=== PATIENT | male | born 1960 | race Caucasian/White ===

== ENCOUNTER 2017-05-21 03:07 | Inpatient (IN) | payer MEDICARE, OTHER ==
[~2017-05-21] VITALS: Ht 172.7 cm; Wt 103.5 kg
--- NOTE | ~2017-05-21 | CO ---
Unit #: [id number] #: [id number] Patient: RALF WANG [id number] [address] [address] [id number] MR#: [id number] NAME: RALF WANG ROOM: [facility] Age: 56 Sex: M Admission Date: 05/21/2017 : 1960 Attending Physician: Meseret Kelley M.D. Primary Care Physician: Clara Primary Care Physician Consultation Date: 05/23/2017 CONSULTATION REPORT REASON FOR CONSULT ICU management. HISTORY OF PRESENT ILLNESS This is a 56-year-old male with past medical history significant for hypertension, alcohol abuse, cirrhosis, esophageal varices and tobacco abuse who presented to the emergency room from home with difficulty breathing and chest pain. His symptoms were associated with diaphoresis, nausea, but there was no vomiting. During his admission his mental status declined, and the patient started going into alcohol withdrawal symptoms with agitation and restlessness. The patient is very confused at this point. The patient was transferred to the ICU, and he was placed on a Precedex drip after he was given multiple doses of Ativan up to 36 mg IV. Currently the patient is very sedated; however, he arouses to (1) and stimuli. PAST MEDICAL HISTORY 1. Hypertension. 2. Depression. 3. Anxiety. 4. Alcohol abuse. 5. Esophageal varices. 6. GERD. PAST SURGICAL HISTORY 1. Appendectomy. 2. Left cataract surgery. 3. Left ankle surgery. ALLERGIES No known drug allergies. FAMILY HISTORY Coronary artery disease. SOCIAL HISTORY The patient drinks alcohol but unsure how much. He is an active smoker. No history of street drug abuse. HOME MEDICATIONS 1. Inderal. Unit #: [id number] #: [id number] Patient: RALF WANG 2. Paroxetine. REVIEW OF SYSTEMS Unable to obtain from the patient due to his condition. PHYSICAL EXAMINATION GENERAL: The patient is sedated, on Precedex drip. VITAL SIGNS: Blood pressure 132/64, respiratory rate 16, O2 saturation 96% on 2 liters nasal cannula. HEENT: Atraumatic, normocephalic. PERRLA, EOMI. NECK: Supple. No JVD. No lymphadenopathy. CHEST: Fine rhonchi at the bases. HEART: S1, S2. No murmur, gallops or rubs. ABDOMEN: Soft, nontender. Bowel sounds positive. No hepatosplenomegaly. EXTREMITIES: No edema or cyanosis. SKIN: No rashes. APARTMENT ASSISTANT MANAGER: The patient is sedated, but he is moving all extremities. He mumbles some words in response to questions, but his conversation is hard to understand. LABS AND OTHER TESTS LABS: Creatinine is 0.8, chloride 102, albumin 3.4. White blood count 5.4, hemoglobin 12.8. IMAGING TESTS: Reviewed. ASSESSMENT 1. Alcohol withdrawal. 2. (2) . 3. Chest pain. 4. Hypertension. 5. Hyperglycemia. 6. Cirrhosis. 7. Esophageal varices. 8. Thrombocytopenia. PLAN 1. I will continue the patient on Precedex drip but will wean as tolerated. 2. Will add clonidine and Neurontin. 3. Will keep NPO for now. 4. Will watch off antibiotics. 5. IV hydration while NPO. 6. Bronchodilator and mucolytics. 7. Will add DVT prophylaxis but we will hold if platelet level less than 40. NOTE: I would like to thank Dr. Gerardo for allowing me to be part of this patient's care. Dictated by... Aarti Rivera M.D. EA/pamela TD: 05/23/2017 12:29 Unit #: [id number] #: [id number] Patient: RALF WANG JOB #: [id number] CONSULTATION REPORT Page 1 of 1 X AARTI MENDENHALL MD CONSULTATION REPORT
--- NOTE | ~2017-05-21 | MR113 ---
[facility] A Service of [facility] & [facility] RADIOLOGY TEXT RESULTS PATIENT: RALF WANG LOCATION: [facility] 315-01 : 56 UNIT #: [id number] AGE: [address]: Meseret Kelley MD SEX: M ORDER DR: [id number] [facility] [address] [facility]. [place], [place] [address] [id number] I MR#: [id number] Acc #: [id number] NAME: RALF WANG. : 1960 SEX: M STUDY DATE/TIME: 05/21/2017 18:04 UNIT: [address] ROOM: [facility] STUDY DESCRIPTION: MR Lumbar Wo Contrast Attending Physician: Meseret Kelley M.D. Ordering Physician: Gopal Vick M.D. Primary Care Physician: No Primary Care Physician MRI CENTER REPORT This report is preliminary unless electronic signature is present. EXAM MRI of the lumbar spine without contrast dated 05/21/2017. COMPARISON MRI lumbar spine without contrast dated 04/16/13 HISTORY Low back pain with history of compression fracture. Alcoholic cirrhosis. FINDINGS Single sagittal T2 fat sat sequence alone was obtained. Patient could not complete the study due to claustrophobia and he refused further continue. There is edema noted in the L1 and L2 vertebral bodies on either side of L1-2 disc. There appears to be mild superior endplate compression deformity of L2 and T12, new when compared to the prior study. Given the lack of other sequences, it is difficult to further characterize it. The edema is noted horizontal extending from the anterior to posterior aspect and a possible fracture cannot be completely excluded. No significant retropulsion of fragments into the canal or significant hematoma is seen. There is 10% - 20% maximal loss of vertebral body height at T12 and L2. Mild degenerative disc disease is noted from L3-4 to L5-S1 with likely disc bulges. There is a right subarticular to foraminal protrusion with annular fissure at L4-5 and L3-4, with mild inferior right neural foraminal narrowing. No significant canal stenosis is seen. IMPRESSION 1. The study is incomplete and hence very limited in evaluation. 2. Only sagittal T2 fat sat sequence is given, as the patient would not complete the study due to severe claustrophobia. 3. Edema is noted at T12, L1 and L2 vertebral bodies. 4. Superior endplate compression deformity is noted at T12 and L1 STS. [facility] A Service of [facility] & [facility] RADIOLOGY TEXT RESULTS PATIENT: RALF WANG LOCATION: [facility] 315-01 : 56 UNIT #: [id number] AGE: [address]: Meseret Kelley MD SEX: M ORDER DR: levels with 10% - 20% loss of vertebral body height. Edema extends from anterior to posterior aspect along the superior endplate and upper body. It could be related to of fracture but a well-defined fracture line is not clearly seen in this sequence, and the other sequences were not obtained to further help characterize it. These findings are new when compared to the prior study from 2012. No obvious superior endplate compression deformity could be clearly seen in the plain films of the lumbar spine from 09/13/[address] lumbar spine extending from T11 inferiorly can be obtained to evaluate these vertebrae for fractures. 5. degenerative disc disease is noted from L3-4 to L5-S1. 5. Right L4-5 and L3-4 foraminal small protrusion with annular fissure. No canal stenosis. Mild right L3-4 and L4-5 neural foraminal narrowing are probably present. Dictated by... Lobo Brush M.D. THIS IS AN ELECTRONICALLY VERIFIED REPORT Lobo Brush M.D. at 05/22/2017 1:12 PM CPR/aicha TD: 05/21/2017 21:38 JOB #: [id number] MRI CENTER REPORT Page 1 of 1 COPY
--- NOTE | ~2017-05-21 | A ---
[facility] Nutrition Therapy DATE: 05/23/17 Patient: RALF WANG Physician: BARTOLOME Address: [address] [place] [address] Room/Bed: [address], Zip: [place] [address] Admit Date: 05/21/17 Date of : 56 Height: 5 8 Weight: 224 102 NUTRITIONAL ASSESSMENT: REASON: NPO status in ICU 56 yo male admitted for back pain, EtOH withdrawal PMH: HTN, EtOH abuse, cirrhosis, bleeding varices, anxiety, depression, GERD, peripheral neuropathy, hernia repair Anthropometrics: Ht: 5'8" Wt: 103 kg BMI: 34.5 Labs: Gluc 155 Alb 3.4 Meds: Therapeutic formula, protonix, loperamide HCl, phenergan, thiamine, MVI, folvite, D5% I/O & Bowel function: 1180/654, last BM 05/21 Skin Integrity: Abrasion LLE/ right knee/ BUE Redness right knee Splint / CSI RLE Scar/ dryness/ discoloration left ankle and foot/ abdomen Edema: none noted Diet: NPO Assessment: Chart reviewed, events noted. 56 yo male admitted for EtOH withdrawal, CIWA protocol initiated. Per RN report, pt is currently NPO d/t AMS, and there are orders for heart healthy diet once deemed appropriate per HOSPICE VOLUNTEER COORDINATOR evaluation. Pt has apparently pulled out several IVs, and would not be an ideal candidate for a DHT due to this. Pt is not appropriate for nutrition interview or diet education at this time. Please see recommendations below. Dx: Inadequate protein-energy intake RT clinical condition, EtOH withdrawal AEB NPO status, RN report. Intervention: 1. Advance diet per HOSPICE VOLUNTEER COORDINATOR 2. MVI + minerals Monitoring, Evaluation and Goals: 1. Oral intake; advance diet per HOSPICE VOLUNTEER COORDINATOR once feasible [facility] Nutrition Therapy DATE: 05/23/17 Patient: RALF WANG Physician: BARTOLOME Address: [address] [place] [address] Room/Bed: [address], Zip: [place] [address] Admit Date: 05/21/17 Date of : 56 Height: 5 8 Weight: 224 102 2. Improve labs; glucose 3. Weight; promote gradual weight loss towards IBW once appropriate Recommendations: 1. Once medically feasible, advance diet per HOSPICE VOLUNTEER COORDINATOR recommendations + heart healthy restriction. 2. Once advanced to PO diet, pt would benefit from Ensure BID and snacks in between meals due to his PMH (cirrhosis). 3. If unable to advance to PO diet, consider alternative form of nutrition. RD will follow up to make appropriate recommendations. Pt is at moderate nutritional risk. RD will follow hospital course per protocol. Respectfully, RIAZ LAWLER RD, LD [employer] [facility] [employer] cc: client file
--- NOTE | ~2017-05-21 | DS ---
Unit #: [id number] #: [id number] Patient: RALF WANG [id number] [address] [address] [id number] I MR#: [id number] NAME: RALF WANG. ROOM: 574 Age: 56 Sex: M Admission Date: 05/21/2017 : 1960 Discharge Date: 05/26/2017 Attending Physician: Bryon Gerardo M.D. Primary Care Physician: Primary Care Physician No DISCHARGE SUMMARY PRIMARY DIAGNOSIS Chest pain, noncardiac. 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 HOSPITAL COURSE The patient was admitted to the hospital for chest pain rule out. He underwent cardiac stress testing, which was negative, but began to have severe delirium tremens prior to the result coming back. He was transferred to the ICU and put on a high dose delirium tremens protocol with the addition of scheduled Librium and ultimately ended up on a Precedex drip. This was slowly weaned off over a number of days with the assistance of Dr. Rivera with Pulmonology. Dr. Kelley with Cardiology also saw the patient for the first few days of hospitalization, and once we cleared him from a cardiac standpoint, transferred the care to me. Ultimately, the patient reported to me that he was going to stay off alcohol, although he did not seem fully certain of this. I am going to try to give him a few days taper of Librium, but I strictly instructed him to stop the Librium if he goes back to using the alcohol, which seems likely considering he has been on alcohol daily for the last 10 years or more. I did add Flomax to his outpatient regimen for BPH. DISCHARGE DISPOSITION To home. DISCHARGE STATUS Stable. DISCHARGE ACTIVITY Ad thomas. DISCHARGE DIET Unrestricted. DISCHARGE FOLLOWUP Followup is with his PCP in 1 to 4 weeks. Unit #: [id number] #: [id number] Patient: RALF WANG DISCHARGE MEDICATIONS Flomax 0.4 mg p.o. q.h.s., paroxetine 40 mg p.o. once daily, Inderal 40 mg p.o. t.i.d., Librium 10 mg p.o. b.i.d. for 2 days and then stop, and aspirin 81 mg p.o. daily. Dictated by... Bryon Gerardo M.D. DONALDO/ras TD: 05/28/2017 12:25 JOB #: [id number] DISCHARGE SUMMARY Page 1 of 1 X Bryon Gerardo MD X DISCHARGE SUMMARY
--- NOTE | ~2017-05-21 | HP ---
Unit #: [id number] #: [id number] Patient: RALF WANG [id number] [address] [address] [id number] I MR#: [id number] NAME: RALF WANG. ROOM: 38089 Age: 56 Sex: M Admission Date: 05/21/2017 : 1960 Attending Physician: Meseret Kelley M.D. Primary Care Physician: No Primary Care Physician HISTORY AND PHYSICAL HISTORY OF PRESENT ILLNESS This is a 56-year-old male with a past medical history of hypertension, prior alcohol abuse, cirrhosis, bleeding varices, tobacco abuse, lipid status is unknown, anxiety, depression, gastroesophageal reflux, alcoholic peripheral neuropathy. The patient presents to the hospital from home. States he was awoken from sleep due to difficulty breathing. Noticed palpitations at that time as well as some complaint of mid sternal chest pain. Describes the pain as squeezing. States it would not relieve. Therefore, came to the emergency room for evaluation. Pain was associated with diaphoresis, nausea but denies any vomiting or syncopal episodes. The patient is also complaining of severe lower lumbar pain and states he is unable to lay flat secondary to this reason. Initial EKG on arrival to the emergency room shows normal sinus rhythm, rate of 100 beats per minute, no acute ischemic change, nonspecific ST abnormalities noted, QTc interval of 492 ms. Initial troponin has been negative. The patient has received aspirin as well as sublingual nitroglycerin with minimal relief. Upon examination of the patient in room 9 in the emergency room, he is still complaining of chest pain. Describes as squeezing with radiation into the right shoulder. The patient is also very diaphoretic but does not appear to be in any acute distress. His breathing is unlabored. He has been treated with two additional sublingual nitroglycerin with minimal relief of his pain. He continues to say his back pain is worse than the chest pain. STAT EKG has been ordered. PAST MEDICAL HISTORY 1. Hypertension. 2. Depression and anxiety. 3. Previous history of alcohol abuse. 4. History of bleeding varices. 5. Gastroesophageal reflux. 6. Lipid status is unknown. PAST SURGICAL HISTORY 1. Periumbilical and bilateral inguinal hernia repair. 2. Appendectomy. 3. Left cataract surgery. 4. Left ankle surgery. ALLERGIES No known drug allergies. FAMILY HISTORY Unit #: [id number] #: [id number] Patient: RALF WANG Patient does report a family history significant for coronary artery disease in both his brother and his father. SOCIAL HISTORY The patient does report a prior history of alcohol abuse, but he states he no longer drinks heavily. He only drinks on occasion. He is an active smoker. Denies any illicit drug use. HOME MEDICATIONS 1. Inderal 40 mg p.o. t.i.d. 2. Paroxetine 40 mg p.o. daily. REVIEW OF SYSTEMS Positive for low-back pain, fatigue, shortness of breath, chest pain, intermittent lower extremity swelling, intermittent palpitations. All other systems were reviewed and are negative. PHYSICAL EXAMINATION GENERAL APPEARANCE: This is a pleasant 56-year-old male who is in ER room 9. He appears slightly anxious but is in no acute distress. VITAL SIGNS: Temperature is 98, respiratory rate 18, pulse 86, blood pressure 133/80. HEENT: Head is atraumatic, normocephalic. Pupils are equal and round. Pharynx is benign. NECK: Supple. Trachea is midline. No thyromegaly or lymphadenopathy. Carotid upstrokes are normal. HEART: S1, S2. No murmur, gallop, or rub. CHEST: Clear, slightly diminished in the bases. No rales, rhonchi, or wheezes are noted. ABDOMEN: Bowel sounds are present. Obese abdomen. Nontender, nondistended. EXTREMITIES: Pulses are palpable but weak. No clubbing, cyanosis, or edema. NEUROLOGIC: He is awake, alert, and oriented. Moves all extremities equally. He follows commands with ease. DIAGNOSTIC STUDIES LABORATORY: Glucose 182, BUN 11, creatinine 0.6, sodium 129, potassium 4, chloride 95, CO2 of 20. Total bilirubin 2.6, bilirubin direct 0.4, bilirubin indirect 2.2, AST 60, ALT 34. Initial troponin is less than 0.05. PT 12, INR 1.1, PTT 25.7. Hemoglobin 15.5, hematocrit 46.1, WBC 6.5, platelet count 77,000. IMAGING: Chest x-ray shows no active disease. CARDIOVASCULAR: EKG shows normal sinus rhythm, rate of 100 beats per minute, nonspecific ST abnormality, QTc interval 492 ms. No acute ischemic change. Repeat EKG shows normal sinus rhythm 70 beats per minute, no acute ischemic change. IMPRESSION 1. Atypical chest pain, rule out acute coronary syndrome. 2. Low-back pain, questionable etiology. 3. Anxiety, depression. 4. Hypertension. 5. Tobacco abuse. Unit #: [id number] #: [id number] Patient: RALF WANG 6. Hyponatremia. 7. Elevated bilirubin. PLAN 1. Will check repeat EKG as the patient is currently complaining of active chest pain. Initial cardiac enzymes were normal. Will get a STAT troponin. If negative, the patient will have ischemic workup today with Lexiscan Cardiolite. 2. Will also check lab work which includes: BMP, fasting lipid, TSH, and a D-dimer. 3. The patient will also be started on aspirin p.o. daily. 4. Will check 2D echocardiogram to check for any structural abnormalities. 5. He does have other medical issues that need addressing which include complaints of severe low-back pain as well as elevated liver function tests. Will ask HIPS to see patient to evaluate for medical management. 6. The patient was advised on the importance of smoking cessation. 7. I was going to start the patient on Lovenox; however, his platelets are 77,000 and in light of two normal troponins and in light of normal EKG, will hold off on Lovenox at this time. This case has been discussed with Dr. Gaines. Further recommendations pending his assessment. Dictated by Usha Romeo A.P.R.N. for Hossein Gaines M.D. [facility]/israel TD: 05/21/2017 09:36 JOB #: [id number] HISTORY AND PHYSICAL Page 1 of 1 X Usha Romeo APRN HISTORY AND PHYSICAL
--- NOTE | ~2017-05-21 | ST ---
Unit #: [id number] #: [id number] Patient: RALF WANG [id number] [address] [address] [id number] I MR#: [id number] NAME: RALF WANG. : 1960 SEX: M STUDY DATE/TIME: 05/22/2017 UNIT: C3A PCU ROOM: [facility] STUDY DESCRIPTION: Attending Physician: Meseret Kelley M.D. CARDIOLOGY REPORT FINDINGS Baseline EKG: Normal sinus rhythm. Nonspecific ST-T changes. Resting heart rate 58 per minute and blood pressure 165/97. PROCEDURE This 56-year-old patient received 0.4 mg of Lexiscan intravenously during the test with no ischemic changes noted and no arrhythmias noted. Blood pressure was stable. INTERPRETATION 1. Nondiagnostic EKG during Lexiscan. 2. No arrhythmias noted. 3. Stable blood pressure during the test. 4. Correlate with the Cardiolite study. 1. Dictated by... Rylye Pyle/maggie TD: 05/22/2017 14:09 JOB #: [id number] CARDIOLOGY REPORT Page 1 of 1 X Meseret Kelley MD CARDIOLOGY REPORT
--- NOTE | ~2017-05-21 | CR72 ---
[facility] A Service of [facility] & [facility] RADIOLOGY TEXT RESULTS PATIENT: RALF WANG LOCATION: [place] [address]-20 : [birth year] UNIT #: [id number] AGE: [address]: Meseret Kelley MD SEX: M ORDER DR: [id number] [place] [address] [facility]. [place], [place] [address] [id number] I MR#: [id number] Acc #: [id number] NAME: RALF WANG : 1960 SEX: M STUDY DATE/TIME: 05/23/2017 12:01 UNIT: [facility] ROOM: [facility] STUDY DESCRIPTION: CR Chest Single View Portable Attending Physician: Meseret Kelley M.D. Ordering Physician: Meseret Kelley M.D. Primary Care Physician: Primary Care Physician No MEDICAL IMAGING REPORT This report is preliminary unless electronic signature is present EXAM Chest portable, 05/23/2017 12:01 hours HISTORY Cough and congestion and abdominal pain with shortness of air, vomiting and sweats for 30 minutes. Dobbhoff tube placement. COMPARISON 05/21/2017 FINDINGS Portable upright chest demonstrates mild cardiomegaly and a tortuous aorta. Lung volumes are lower with perihilar and basilar vascular crowding but no definite edema, pneumonia or effusion. There is a Dobbhoff type tube present with tip terminating in the mid esophagus at approximately the level of the celine. Suggest advancing additional 20.0 cm. IMPRESSION 1. Low lung volume film with no acute cardiopulmonary findings. 2. Dobbhoff tube tip projects in the mid esophagus at the level of the celine. Suggest advancing additional 20.0 cm. Dictated by... Eunice Astorga M.D. THIS IS AN ELECTRONICALLY VERIFIED REPORT Eunice Astorga M.D. at 05/23/2017 5:38 PM Charbel TD: 05/23/2017 15:35 JOB #: [id number] [facility] A Service of [facility] & [facility] RADIOLOGY TEXT RESULTS PATIENT: RALF WANG [address] : [birth year] UNIT #: [id number] AGE: [address]: Meseret Kelley MD SEX: M ORDER DR: MEDICAL IMAGING REPORT Page 1 of 1 COPY
--- NOTE | ~2017-05-21 | EKG ---
PATIENT: RALF WANG UNIT #: [id number] Ventricular Rate: 100 BPM Atrial Rate: 100 BPM P-R Interval: 116 ms QRS Duration: 86 ms Q-T Interval: 382 ms QTC Calculation(Bezet): 492 ms P [place]: -5 degrees Calculated R [place]: 46 degrees Calculated T [place]: -2 degrees Diagnosis Line: Normal sinus rhythm Diagnosis Line: Nonspecific ST abnormality Diagnosis Line: Prolonged QT Diagnosis Line: Abnormal ECG Diagnosis Line: No previous ECGs available Diagnosis Line: Confirmed by BERNABE TOMLIN MD ([id number]) on Diagnosis Line: 05/22/2017 10:34:25 AM INTERPRETING MD: SADA DELCID
--- NOTE | ~2017-05-21 | EKG ---
PATIENT: RALF WANG UNIT #: [id number] Ventricular Rate: 70 BPM Atrial Rate: 70 BPM P-R Interval: 126 ms QRS Duration: 72 ms Q-T Interval: 432 ms QTC Calculation(Bezet): 466 ms P [place]: -28 degrees Calculated R [place]: 3 degrees Calculated T [place]: 13 degrees Diagnosis Line: Normal sinus rhythm Diagnosis Line: Normal ECG Diagnosis Line: When compared with ECG of 21-MAY-2017 03:29, Diagnosis Line: (unconfirmed) Diagnosis Line: No significant change was found Diagnosis Line: Confirmed by BERNABE TOMLIN MD ([id number]) on Diagnosis Line: 05/22/2017 10:36:13 AM INTERPRETING MD: SADA DELCID
--- NOTE | ~2017-05-21 | CR6 ---
[facility] A Service of [facility] & [facility] RADIOLOGY TEXT RESULTS PATIENT: RALF WANG LOCATION: [place] [address] : [birth year] UNIT #: [id number] AGE: [address]: Meseret Kelley MD SEX: M ORDER DR: [id number] [facility] [address] [facility]. [place], [place] [address] [id number] I MR#: [id number] Acc #: [id number] NAME: RALF WANG : 1960 SEX: M STUDY DATE/TIME: 05/23/2017 1208 UNIT: [facility] ROOM: [facility] STUDY DESCRIPTION: CR Abdomen Portable Sng View Attending Physician: Meseret Kelley M.D. Ordering Physician: Meseret Kelley M.D. Primary Care Physician: No Primary Care Physician MEDICAL IMAGING REPORT This report is preliminary unless electronic signature is present EXAM Abdomen one-view 05/23/2017 1208 hours CLINICAL HISTORY Dobbhoff tube placement. COMPARISON Chest film 05/23/2017 1201 hours FINDINGS Supine view of the abdomen demonstrates advancement of the Dobbhoff tube with tip now directed either anteriorly or posteriorly in the fundus of the stomach. IMPRESSION Dobbhoff tube tip is in the fundus of the stomach with tip directed either anteriorly or posteriorly and leftward. Dictated by... Eunice Astorga M.D. THIS IS AN ELECTRONICALLY VERIFIED REPORT Eunice Astorga M.D. at 05/23/2017 5:38 PM Kelechi TD: 05/23/2017 15:37 JOB #: [id number] MEDICAL IMAGING REPORT Page 1 of 1 COPY
--- NOTE | ~2017-05-21 | CR72 ---
[facility]. [facility] A Service of [facility] & [facility] RADIOLOGY TEXT RESULTS PATIENT: RALF WANG LOCATION: [facility] [id number] : 56 UNIT #: [id number] AGE: [address]: Meseret Kelley MD SEX: M ORDER DR: [id number] [facility] [address] [place], [place] [address] [id number] MR#: [id number] Acc #: [id number] NAME: RALF WANG. : 1960 SEX: M STUDY DATE/TIME: 05/21/2017 3:41 UNIT: CEDOF ROOM: [facility] STUDY DESCRIPTION: CR Chest Single View Portable Attending Physician: Meseret Kelley M.D. Ordering Physician: Jameson Amaro M.D. Primary Care Physician: Primary Care Physician No MEDICAL IMAGING REPORT This report is preliminary unless electronic signature is present EXAM Portable chest 05/21/2017 INDICATION Shortness of air, chest pain since 1 a.m. COMPARISON 09/26/2015. FINDINGS A portable view of the chest was obtained. Heart size and vascularity are normal. The lungs are clear. The bones are normal. IMPRESSION No active disease. Dictated by... Will South M.D. THIS IS AN ELECTRONICALLY VERIFIED REPORT Will South M.D. at 05/21/2017 3:09 PM MARIAN/cirilo TD: 05/21/2017 05:58 JOB #: [id number] MEDICAL IMAGING REPORT Page 1 of 1 COPY
--- NOTE | ~2017-05-21 | TH ---
Unit #: [id number] #: [id number] Patient: RALF WANG [id number] [address] [address] [id number] I MR#: [id number] NAME: RALF WANG. : 1960 SEX: M STUDY DATE/TIME: UNIT: C3A PCU ROOM: [address] [place] [address] DESCRIPTION: Attending Physician: Meseret Kelley M.D. CARDIOLOGY REPORT DESCRIPTION This 56-year-old patient received 0.4 mg of Lexiscan intravenously followed by 34.1 mCi of technetium 99m Cardiolite, and images were obtained according to the standard SPECT protocol. For rest images, 11.54 mCi of Cardiolite was injected. Images were reviewed in both phases. FINDINGS Overall study quality is excellent. LV cavity size is normal in both images. There is no lung activity. RV is normal. Rotating raw data showed no significant artifact, soft tissue attenuation, or GI uptake. Review of the SPECT images showed normal homogeneous radiotracer concentration throughout the myocardium in both the stress and rest images. Gated images showed normal LV wall thickening and wall motion with an estimated LV ejection fraction of 63%. IMPRESSION 1. Myocardial perfusion imaging is normal. 2. No evidence of ischemia or infarct. 3. Normal left ventricle dimensions. 4. Normal systolic left ventricular function with an estimated left ventricular ejection fraction of 63%. 1. Dictated by... Ryley Pyle/maggie TD: 05/22/2017 14:16 JOB #: [id number] CARDIOLOGY REPORT Page 1 of 1 X Meseret Kelley MD CARDIOLOGY REPORT
[~2017-05-21 03:07] MED LIST: ACETAMINOPHEN PR; ALDACTONE PO; AMITRIPTYLINE H25 MG PO; AMITRIPTYLINE H50 MG PO; AMITRYPTYLINE PO; BACTROBAN22 GM TP; DESYREL150 M1 PO; FAMOTIDINE PO; FAMOTIDINE20 M1 PO; FLURAZEPAM HCL30 MG PO; FOLIC ACID PO; FOLIC ACID1 MG PO; GABAPENTIN400 MG PO; INDERAL20 MG PO; INDERAL40 MG PO; LASIX PO; LASIX20 MG PO; LYRICA PO; MAG-AL ULTIMATE20 ML PO; MULTI VITAMIN1 EACH PO; MULTI-DAY VITAM1 TAB PO; MULTI-VITAMIN1 EAC1; NAPROXEN500 M1 PO; NEURONTIN100 MG PO; NEURONTIN600 MG PO; NEURONTIN800 MG PO; NORCO 5/325 TAB1 TAB PO; OXYCODONE HCL5 M1 PO; PAXIL40 MG PO; PEPCID AC20 M2 PO; PROPRANOLOL HCL40 MG PO; PROPRANOLOL PO; REMERON15 MG PO; RESTORIL15 MG PO; SEROQUEL PO; SEROQUEL25 MG PO; SEROQUEL50 M1 PO; SPIRONOLACTONE100 MG PO; THIAMINE HCL100 MG PO; TRENTAL400 MG PO; VIT B-12 PO; VITAMIN B; VITAMIN B-121000 MCG PO; VITAMIN B-12250 MCG PO; ZINC30 M1 PO; ZINC50 M1 PO
[2017-05-21 03:51] LABS: BASOPHIL% 0.2 % (0-2.5); EOSINOPHIL% 0.2 % (0.0-7.0); HEMATOCRIT 46.1 % (38.0-50.0); HEMOGLOBIN 15.5 gm/dL (13.0-16.0); LYMPHOCYTE# 0.3 X10e3 (1.0-3.5); LYMPHOCYTE% 5.3 % (17.0-45.0); MEAN CELL VOLUME 98.2 FL (83-96); MEAN CORPUSCULAR HEMOGLOBIN 33.1 PG (28-34); MEAN CORPUSCULAR HGB CONC 33.7 g/dL (30-36); MEAN PLATELET VOLUME 7.3 FL (6.5-11.5); MONOCYTE# 0.3 X10e3 (0-1.0); MONOCYTE% 4.6 % (3.0-12.0); NEUTROPHIL# 5.8 X10e3 (1.5-7.1); NEUTROPHIL% 89.7 % (40-75); RED BLOOD COUNT 4.69 X10e (3.90-5.60); RED CELL DISTRIBUTION WIDTH 14.3 % (11.0-15.5); WHITE BLOOD COUNT 6.5 X10e3 (4.0-10.5)
[2017-05-21 03:53] LABS: POC - CKMB 1.9 ng/mL (0.0-7.9); POC - TROPONIN <0.05 ng/mL (<=0.05)
[2017-05-21 04:03] LABS: DIFF IND YES; PLATELET COUNT 77 X10e3 (140-420)
[2017-05-21 04:07] LABS: INR 1.1; PARTIAL THROMBOPLASTIN TIME 25.7 SECONDS (23.5-31.3)
[2017-05-21 04:17] LABS: PLATELET ESTIMATE DECREASED (NORMAL); RBC NORMAL YES
[2017-05-21 04:18] LABS: ALBUMIN SERUM 4.1 g/dL (3.5-5.0); BILIRUBIN, DIRECT 0.4 mg/dL (0.0-0.2); BILIRUBIN,INDIRECT 2.2 mg/dL (0.0-0.9); BILIRUBIN,TOTAL 2.6 mg/dL (0.2-2.0); BUN/CREATININE RATIO 18.33; CALCIUM SERUM 8.8 mg/dL (8.4-10.2); CREATININE SERUM 0.6 mg/dL (0.6-1.4); GLOM FILT RATE Estimated 110.9 mL/min (>60); PROTEIN TOTAL SERUM 8.3 g/dL (6.0-8.3)
[2017-05-21] MEDS ORDERED: INDERAL40 MG PO (06:01)
[2017-05-21] MEDS ORDERED: PAROXETINE HCL40 M1 PO (06:01)
[2017-05-21 06:50] LABS: POC - CKMB 2.1 ng/mL (0.0-7.9); POC - TROPONIN <0.05 ng/mL (<=0.05)
[2017-05-21 07:11] LABS: %MB 2.3 % (0.0-4.0); MB 3.2 ng/ml
[2017-05-21 10:00] LABS: %MB 1.9 % (0.0-4.0)
[2017-05-21 12:04] LABS: %MB 1.8 % (0.0-4.0); MB 5.1 ng/ml
[2017-05-21 16:16] LABS: %MB 1.7 % (0.0-4.0); MB 6.4 ng/ml
[2017-05-22 06:04] LABS: HEMATOCRIT 44.9 % (38.0-50.0); HEMOGLOBIN 14.8 gm/dL (13.0-16.0); MEAN CELL VOLUME 99.8 FL (83-96); MEAN CORPUSCULAR HEMOGLOBIN 32.9 PG (28-34); MEAN CORPUSCULAR HGB CONC 32.9 g/dL (30-36); MEAN PLATELET VOLUME 7.7 FL (6.5-11.5); RED BLOOD COUNT 4.5 X10e (3.90-5.60); RED CELL DISTRIBUTION WIDTH 14.1 % (11.0-15.5); WHITE BLOOD COUNT 6.4 X10e3 (4.0-10.5)
[2017-05-22 06:56] LABS: CALCIUM SERUM 8.8 mg/dL (8.4-10.2); CREATININE SERUM 0.8 mg/dL (0.6-1.4); GLOM FILT RATE Estimated 98.5 mL/min (>60); POTASSIUM 3.7 mmol/L (3.5-5.1)
[2017-05-22 07:14] LABS: MB 6.4 ng/ml
[2017-05-23 06:13] LABS: HEMATOCRIT 38.9 % (38.0-50.0); MEAN CELL VOLUME 100.5 FL (83-96); MEAN CORPUSCULAR HEMOGLOBIN 33.1 PG (28-34); MEAN PLATELET VOLUME 7.6 FL (6.5-11.5); RED BLOOD COUNT 3.87 X10e (3.90-5.60); RED CELL DISTRIBUTION WIDTH 13.8 % (11.0-15.5); WHITE BLOOD COUNT 5.4 X10e3 (4.0-10.5)
[2017-05-23 06:42] LABS: HEMOGLOBIN 12.8 gm/dL (13.0-16.0)
[2017-05-23 07:25] LABS: ALBUMIN SERUM 3.4 g/dL (3.5-5.0); BILIRUBIN,TOTAL 2.5 mg/dL (0.2-2.0); BUN/CREATININE RATIO 27.5; CALCIUM SERUM 8.4 mg/dL (8.4-10.2); CREATININE SERUM 0.8 mg/dL (0.6-1.4); GLOM FILT RATE Estimated 98.5 mL/min (>60); MAGNESIUM 1.9 mg/dL (1.6-3.0); POTASSIUM 3.8 mmol/L (3.5-5.1); PROTEIN TOTAL SERUM 6.7 g/dL (6.0-8.3)
[2017-05-23 10:18] LABS: ARTERIAL BLD GAS O2 SATURATION 96.2 % (90.0-100.0); ARTERIAL BLOOD GAS CARBOXY HB 1.8 %sat (0.0-9.0); ARTERIAL BLOOD GAS MET HB 0.9 %sat (0.0-2.0); ARTERIAL BLOOD GAS PCO2 43.1 mmHg (35.0-45.0); ARTERIAL BLOOD GAS pH 7.371 (7.350-7.450)
[2017-05-23 10:20] LABS: ARTERIAL BLOOD GAS ALLEN TEST N; ARTERIAL DRAW? YES
[2017-05-23 10:21] LABS: ARTERIAL BLOOD GAS ART SITE RIGHT RADIAL; ARTERIAL BLOOD GAS DELIVERY NASAL CANNULA
[2017-05-24 05:01] LABS: BASOPHIL% 0.6 % (0-2.5); EOSINOPHIL# 0.1 X10e3 (0-0.7); EOSINOPHIL% 1.5 % (0.0-7.0); HEMATOCRIT 37.2 % (38.0-50.0); HEMOGLOBIN 12.2 gm/dL (13.0-16.0); LYMPHOCYTE# 0.7 X10e3 (1.0-3.5); LYMPHOCYTE% 14.1 % (17.0-45.0); MEAN CELL VOLUME 100.3 FL (83-96); MEAN CORPUSCULAR HEMOGLOBIN 32.8 PG (28-34); MEAN CORPUSCULAR HGB CONC 32.7 g/dL (30-36); MEAN PLATELET VOLUME 7.3 FL (6.5-11.5); MONOCYTE# 0.6 X10e3 (0-1.0); NEUTROPHIL# 3.7 X10e3 (1.5-7.1); NEUTROPHIL% 72.8 % (40-75); RED BLOOD COUNT 3.71 X10e (3.90-5.60); RED CELL DISTRIBUTION WIDTH 13.7 % (11.0-15.5)
[2017-05-24 05:03] LABS: PLATELET COUNT 47 X10e3 (140-420)
[2017-05-24 05:04] LABS: DIFF IND NO
[2017-05-24 05:27] LABS: BUN/CREATININE RATIO 28.33; CALCIUM SERUM 7.8 mg/dL (8.4-10.2); CREATININE SERUM 0.6 mg/dL (0.6-1.4); GLOM FILT RATE Estimated 110.9 mL/min (>60); POTASSIUM 3.5 mmol/L (3.5-5.1)
[2017-05-25 08:39] LABS: HEMATOCRIT 37.5 % (38.0-50.0); HEMOGLOBIN 12.4 gm/dL (13.0-16.0); MEAN CELL VOLUME 99.8 FL (83-96); MEAN CORPUSCULAR HGB CONC 33.1 g/dL (30-36); MEAN PLATELET VOLUME 8.5 FL (6.5-11.5); RED BLOOD COUNT 3.76 X10e (3.90-5.60); RED CELL DISTRIBUTION WIDTH 14.1 % (11.0-15.5); WHITE BLOOD COUNT 5.5 X10e3 (4.0-10.5)
[2017-05-25 09:10] LABS: ALBUMIN SERUM 2.8 g/dL (3.5-5.0); BILIRUBIN,TOTAL 1.6 mg/dL (0.2-2.0); BUN/CREATININE RATIO 14.28; CALCIUM SERUM 7.8 mg/dL (8.4-10.2); CREATININE SERUM 0.7 mg/dL (0.6-1.4); GLOM FILT RATE Estimated 104.1 mL/min (>60); MAGNESIUM 1.6 mg/dL (1.6-3.0)
[2017-05-26 05:56] LABS: HEMATOCRIT 35.2 % (38.0-50.0); HEMOGLOBIN 11.7 gm/dL (13.0-16.0); MEAN CORPUSCULAR HEMOGLOBIN 32.9 PG (28-34); MEAN CORPUSCULAR HGB CONC 33.3 g/dL (30-36); MEAN PLATELET VOLUME 7.9 FL (6.5-11.5); RED BLOOD COUNT 3.55 X10e (3.90-5.60); RED CELL DISTRIBUTION WIDTH 13.8 % (11.0-15.5); WHITE BLOOD COUNT 3.8 X10e3 (4.0-10.5)
[2017-05-26 06:25] LABS: MAGNESIUM 1.9 mg/dL (1.6-3.0)
[2017-05-26] MEDS ORDERED: FLOMAX0.4 M1 PO (15:47)
[2017-05-26] MEDS ORDERED: LIBRIUM5 M1 PO (15:50)
[2017-05-26] MEDS ORDERED: ASPIRIN81 MG PO (15:52)
== END 2017-05-26 16:25 | disposition home or self-care (01) | DRG 896 ==
LOC: CED 03:07 → C3A PCU 05:35 → CED 05:35 → CEDOF 05:35 → C3A PCU 05:38 → CED 05:38 → CEDOF 10:00 → CICCU3 10:00 → C3A PCU 11:59 → CEDOF 11:59 → C3A PCU 05-22 10:37 → CICCU3 05-22 15:35 → C5C 05-24 18:30
PROVIDERS: Emergency Medicine; Internal Medicine; Internal Medicine Cardiovascular Disease; Nurse Practitioner
DX: F10.231 Alcohol dependence with withdrawal delirium (principal); G92 Toxic encephalopathy; I85.00 Esophageal varices without bleeding; D69.6 Thrombocytopenia, unspecified; E44.0 Moderate protein-calorie malnutrition; E87.1 Hypo-osmolality and hyponatremia; R44.3 Hallucinations, unspecified; R07.9 Chest pain, unspecified; I10 Essential (primary) hypertension; R73.9 Hyperglycemia, unspecified; K70.30 Alcoholic cirrhosis of liver without ascites; K21.9 Gastro-esophageal reflux disease without esophagitis; F41.9 Anxiety disorder, unspecified; F32.9 Major depressive disorder, single episode, unspecified; Z98.49 Cataract extraction status, unspecified eye; R07.89 Other chest pain; F17.210 Nicotine dependence, cigarettes, uncomplicated; M54.5 Low back pain; I95.2 Hypotension due to drugs; Z68.34 Body mass index [BMI] 34.0-34.9, adult
CPT/HCPCS: 36415; 36600; 71010; 72148; 74000; 78452; 80048; 80053; 80061; 80076; 82140; 82550; 82553; 82607; 82803; 82947; 83735; 83880; 84132; 84443; 84484; 85025; 85027; 85379; 85610; 85730; 93005; 93017; 93306; 94640; 94760; 94761; 96374; 96375; 97110; 97116; 97163; 97530; 99285; A9500; C9113; G8978-GP; G8979-GP; G8980-GP; J1650; J2060; J2270; J2405; J2785; J3411; J3475; J7042